=== PATIENT | female | born 1980 | race Hispanic/Latino ===

== ENCOUNTER 2019-07-05 21:17 | Emergency (ER) | payer SELFPAY ==
--- NOTE | 2019-07-05 23:26 | XRay Report ---
CHEST 2 VIEWS INDICATION / CLINICAL INFORMATION: COUGH/CHEST PAIN. COMPARISON: None available. FINDINGS: SUPPORT DEVICES: None. HEART / MEDIASTINUM: No significant abnormality. LUNGS / PLEURA: No significant pulmonary or pleural abnormality. No pneumothorax. ADDITIONAL FINDINGS: No significant additional findings. IMPRESSION: 1. No acute findings. Signer Name: Jalen Cates MD Signed: 07/05/2019 11:22 PM Workstation Name: [id number]
[2019-07-05 23:36] LABS: Hematocrit 41.8 % (30.3-42.9); Hemoglobin 14.4 gm/dl (10.1-14.3); Mean Corpuscular HGB Conc 34 % (30-34); Mean Corpuscular Volume 96 fl (79-97); Platelet Count 100 K/mm3 (140-440); Red Blood Count 4.35 M/mm3 (3.65-5.03)
[2019-07-06 00:02] LABS: Alanine Aminotransferase 155 units/L (7-56); Albumin 4.2 g/dL (3.9-5); BUN/Creatinine Ratio 27; Blood Urea Nitrogen 19 mg/dL (7-17); Calcium 9.1 mg/dL (8.4-10.2); Hemolysis Index 23
[2019-07-06 01:07] LABS: Bacteria,Urine 1+ /HPF (Negative); Bilirubin,Urine SM (Negative); Blood,Urine NEG (Negative); Color,Urine Amber (Yellow); Mucus,Urine 3+ /HPF
--- NOTE | 2019-07-06 01:15 | Emergency Department Report ---
Minor Respiratory - HPI Chief Complaint: Upper Respiratory Infection Stated Complaint: BRYAN/FLU Time Seen by Provider: 07/06/19 01:13 Minor Respiratory: Yes Cough, No Rhinorrhea, No Sore Throat, No Able to Tolerate Fluids, No Ear Pain, No Sick Contacts, No Hemoptysis, No Chest Pain, No Shortness of Breath, No Fever Other History: This is a 38-year-old female with who presents the ED complaining of headache, nausea and vomiting and flulike symptoms for the past 3 to 4 days. Patient states she was around her new nephew who was had the flu. Patient states that she has been having some vomiting along with a headache with upper respiratory symptoms. Patient states that she has been having intermittent dry cough and as well. ED Review of Systems ROS: Stated complaint: BRYAN/FLU Other details as noted in HPI Comment: All other systems reviewed and negative ED Past Medical Hx - Past Medical History Previous Medical History?: Yes Hx Diabetes: Yes Hx Arthritis: Yes (DJD) Additional medical history: NEUROPATHY - Surgical History Past Surgical History?: Yes Additional Surgical History: TUBILIGATION - Social History Smoking Status: Never Smoker Substance Use Type: None - Medications Home Medications: Home Medications Medication Instructions Recorded Confirmed Last Taken Type Promethazine [Phenergan SUPPOS] 25 mg ID Q12HR PRN #20 supp.rect 07/06/19 Unknown Rx Minor Respiratory Exam - Exam General: Vital signs noted. No distress. Alert and acting appropriately. HEENT: Yes Moist Mucous Membranes, No Pharyngeal Erythema, No Pharyngeal Exudates, No Rhinorrhea, No Conjuctival Injection, No Frontal Tenderness, No Maxillary Tenderness Ear: Neither TM Bulge, Neither TM Erythema, Neither EAC Pain, Neither EAC Discharge Neck: Yes Supple, No Adenopathy Lungs: Yes Good Air Exchange, No Wheezes, No Ronchi, No Stridor, No Cough, No Labored Respirations, No Retractions, No Use of Accessory Muscles, No Other Abnormal Lung Sounds Heart: Yes Regular, No Murmur Abdomen: Yes Normal Bowel Sounds, No Tenderness, No Peritoneal Signs Skin: No Rash, No Edema Neurologic: Alert and oriented, no deficits. Musculoskeletal: Unremarkable. ED Course Vital Signs 07/05/19 07/05/19 21:29 22:41 Temperature 98.6 F 98.6 F Pulse Rate 105 H 94 H Respiratory 18 18 Rate Blood Pressure 98/71 98/71 O2 Sat by Pulse 96 96 Oximetry ED Medical Decision Making - Lab Data Result diagrams: 07/05/19 23:25 07/05/19 23:25 Temp Pulse Resp BP Pulse Ox 98.6 F 94 H 18 98/71 96 07/05/19 22:41 07/05/19 22:41 07/06/19 01:54 07/05/19 22:41 07/05/19 22:41 Laboratory Last Values WBC 2.9 K/mm3 (4.5-11.0) L 07/05/19 23:25 RBC 4.35 M/mm3 (3.65-5.03) 07/05/19 23:25 Hgb 14.4 gm/dl (10.1-14.3) H 07/05/19 23:25 Hct 41.8 % (30.3-42.9) 07/05/19 23:25 MCV 96 fl (79-97) 07/05/19 23:25 MCH 33 pg (28-32) H 07/05/19 23:25 MCHC 34 % (30-34) 07/05/19 23:25 RDW 13.0 % (13.2-15.2) L 07/05/19 23:25 Plt Count 100 K/mm3 (140-440) L 07/05/19 23:25 Sodium 138 mmol/L (137-145) 07/05/19 23:25 Potassium 3.6 mmol/L (3.6-5.0) 07/05/19 23:25 Chloride 99.0 mmol/L (98-107) 07/05/19 23:25 Carbon Dioxide 24 mmol/L (22-30) 07/05/19 23:25 Anion Gap 19 mmol/L 07/05/19 23:25 BUN 19 mg/dL (7-17) H 07/05/19 23:25 Creatinine 0.7 mg/dL (0.7-1.2) 07/05/19 23:25 Estimated GFR > 60 ml/min 07/05/19 23:25 BUN/Creatinine Ratio 27 % 07/05/19 23:25 Glucose 95 mg/dL (65-100) 07/05/19 23:25 Calcium 9.1 mg/dL (8.4-10.2) 07/05/19 23:25 Total Bilirubin 0.30 mg/dL (0.1-1.2) 07/05/19 23:25 AST 122 units/L (5-40) H 07/05/19 23:25 ALT 155 units/L (7-56) H 07/05/19 23:25 Alkaline Phosphatase 138 units/L (35-129) H 07/05/19 23:25 Total Protein 6.5 g/dL (6.3-8.2) 07/05/19 23: Albumin 4.2 g/dL (3.9-5) 07/05/19 23: Albumin/Globulin Ratio 1.8 % 07/05/19 23:25 Urine Color Terri (Yellow) 07/06/19 00:29 Urine Turbidity Slightly-cloudy (Clear) 07/06/19 00: Urine pH 5.0 (5.0-7.0) 07/06/19 00:29 Ur Specific Corinna 1.046 (1.003-1.030) H 07/06/19 00:29 Urine Protein 100 mg/dl mg/dL (Negative) 07/06/19 00:29 Urine Glucose (UA) Neg mg/dL (Negative) 07/06/19 00:29 Urine Ketones 80 mg/dL (Negative) 07/06/19 00:29 Urine Blood Neg (Negative) 07/06/19 00:29 Urine Nitrite Neg (Negative) 07/06/19 00:29 Urine Bilirubin Sm (Negative) 07/06/19 00: Urine Ictotest Negative (Negative) 07/06/19 00: Urine Urobilinogen 2.0 mg/dL (<2.0) 07/06/19 00:29 Ur Leukocyte Esterase Neg (Negative) 07/06/19 00:29 Urine WBC (Auto) 14.0 /HPF (0.0-6.0) H 07/06/19 00:29 Urine RBC (Auto) 9.0 /HPF (0.0-6.0) 07/06/19 00:29 U Epithel Cells (Auto) 14.0 /HPF (0-13.0) H 07/06/19 00:29 Urine Bacteria (Auto) 1+ /HPF (Negative) 07/06/19 00: Urine Mucus 3+ /HPF 07/06/19 00:29 - Radiology Data Radiology results: report reviewed, image reviewed FINDINGS: SUPPORT DEVICES: None. HEART / MEDIASTINUM: No significant abnormality. LUNGS / PLEURA: No significant pulmonary or pleural abnormality. No pneumothorax. ADDITIONAL FINDINGS: No significant additional findings. IMPRESSION: 1. No acute findings. Signer Name: Jalen Cates MD Signed: 07/05/2019 11:22 PM Workstation Name: [id number] Transcribed By: JAYJAY Dictated By: Jalen Cates MD Electronically Authenticated By: Jalen Cates MD Signed Date/Time: 07/05/19 4022 - Medical Decision Making 38-year-old male presents with flulike symptoms. no fever during the ED stay. Discussed with mother symptomatic relief with [id number] medications. Discussed continue Tylenol and Motrin as needed for fever and pain. Discussed increase fluids and diet intake. Discussed rest much needed. Discussed daily vitamin C for immune booster. Discussed follow-up with harp action assembler in 3-5 days. Patient's verbally states she understands and will comply the following instructions and follow-up Vital signs stable. Patient is in no acute distress Critical care attestation.: If time is entered above; I have spent that time in minutes in the direct care of this critically ill patient, excluding procedure time. ED Disposition Clinical Impression: Acute viral syndrome, Acute cystitis Disposition: DC-01 TO HOME OR SELFCARE Is pt being admited?: No Does the pt Need Aspirin: No Condition: Stable Instructions: Viral Syndrome (ED), Acute Nausea and Vomiting (ED), Urinary Tract Infection in Women (ED) Additional Instructions: Make sure to follow up with the primary care physician as discussed. If you have any worsening symptoms or develop new symptoms please return to ED immediately. Prescriptions: Promethazine [Phenergan SUPPOS] 25 mg ID Q12HR PRN #20 supp.rect PRN Reason: Nausea Referrals: [facility] [Outside[facility] - 3[facility]5 Days [facility] [Outside] - 3-5 Days Forms: Accompanied Note, Work/School Release Form(ED) Time of Disposition: 02:42
[2019-07-06 01:30] LABS: Ictotest,Urine Negative (Negative)
[2019-07-06] MEDS ORDERED: diphenhydrAMINE 50 MG/ML VIAL IV ONE (01:40)
[2019-07-06] MEDS ORDERED: KETOROLAC 30 MG/1 ML INJ IV ONE (01:40)
[2019-07-06] MEDS ORDERED: PROMETHAZINE 25 MG TAB PO ONE (01:41)
[2019-07-06 03:54] VITALS: BP 110/74
== END 2019-07-06 03:54 | disposition home or self-care (01) ==
LOC: ED 21:17
DX: B34.9 Viral infection, unspecified (principal); N30.00 Acute cystitis without hematuria
CPT/HCPCS: 36415; 71046; 80053; 81001; 85027; 87086; 93005; 93010; 96365; 96375; 99284; J0696; J1200; J1885; Q0169